=== PATIENT | male | born 1960 | race African-American/Black ===

== ENCOUNTER → 2020-08-16 | Outpatient (CLI) | payer MEDICARE ==
[~2020-08-16] MED LIST: BENA1TAB19; CEPH-569; DEXAMETHASONE 4MG/ML 1ML VIAL ONE; FENTANYL CITRATE/PF 50MCG/ML 2ML VIAL ONE; HYDR-4005; INSLIS SUBCUT; LEVEMIR FLEXPEN; METF-416; MIDAZOLAM HCL 2 MG/2 ML VIAL ONE; ONDANSETRON HCL 4MG/2ML INJ ONE; PROPOFOL 200MG/20ML VIAL IV ONE
== END | disposition home or self-care (01) ==
LOC: LAB 08:01
PROVIDERS: ATTEND Surgery Vascular Surgery
DX: Z20.822 Contact with and (suspected) exposure to COVID-19 (principal)
CPT/HCPCS: 87426

== ENCOUNTER → 2020-08-19 | Day surgery (SDC) | payer MEDICARE, OTHER ==
[~2020-08-19] VITALS: Ht 188 cm; Wt 142.9 kg
[~2020-08-19] MED LIST changes: +BACITRACIN 15GM TUBE TOP ONE; +BUPIVACAINE HCL 0.5% (5MG/ML) 50ML ONE; -DEXAMETHASONE 4MG/ML 1ML VIAL ONE; +DEXT 5%/0.45% NACL 1000ML 1,000 ML IV SCH; -FENTANYL CITRATE/PF 50MCG/ML 2ML VIAL ONE; +HEPARIN SODIUM 1,000 UNIT/1ML VIAL IV ONE; +HYDROMORPHONE HCL/PF 2MG/ML CPJ IV PRN; +INSULIN REGULAR (HUMULIN R) 300UNITS/3ML VIAL ONE; +INSULIN REGULAR (HUMULIN R) 300UNITS/3ML VIAL SUBCUT SCH; +LABETALOL 5MG/ML SYR 20 MG/4 ML SYRINGE IV PRN; +LIDOCAINE HCL 1% 20ML VIAL (Pyxis) INJ ONE; +MEPERIDINE HCL/PF 25MG/ML CPJ IV PRN; -MIDAZOLAM HCL 2 MG/2 ML VIAL ONE; +ONDANSETRON HCL 4MG/2ML INJ IV PRN; -ONDANSETRON HCL 4MG/2ML INJ ONE; +POLYMYXIN B SULFATE 500000 UNITS/VIAL ONE; -PROPOFOL 200MG/20ML VIAL IV ONE; +SODIUM CHLORIDE 0.9% 500 ML IV ONE; +THROMBIN (BOVINE) 5000 UNITS/VIAL TOP ONE
[2020-08-19 06:19] LABS: PARTIAL THROMBOPLASTIN TIME 24.5 sec (23.4-31.0); PROTHROMBIN TIME 10.4 sec (9.6-11.0)
[2020-08-19 06:21] LABS: BASOPHILS % 0.7 % (0.0-2.0); EOSINOPHILS % 1.9 % (0.0-5.0); HEMOGLOBIN. 11.1 g/dL (14.0-18.0); LYMPHOCYTES % 23.7 % (20.0-50.0); MEAN CORPUSCULAR HEMOGLOBIN 30.5 pg (28.0-32.0); MEAN CORPUSCULAR VOLUME 93.9 fL (80.0-94.0); MEAN PLATELET VOLUME 8.3 fl (7.4-10.4); MONOCYTES % 7.2 % (2.0-8.0); NEUTROPHILS % 66.5 % (40.0-76.0); PLATELET 243 x1000/uL (130-400); RED BLOOD CELL COUNT 3.62 mill/uL (4.7-6.1); RED CELL DISTRIBUTION WIDTH 13.8 % (11.6-14.6)
== END | disposition home or self-care (01) ==
LOC: OR 05:25
PROVIDERS: ATTEND Surgery Vascular Surgery
DX: N18.6 End stage renal disease (principal); Z99.2 Dependence on renal dialysis; Z79.899 Other long term (current) drug therapy; Z98.890 Other specified postprocedural states
CPT/HCPCS: 36415; 36821; 80048; 82962; 85025; 85610; 85730; 93005; C1884; J1100; J1644; J2250; J2405; J2704; J3010; J3490; J7040; A4565; J1815

== ENCOUNTER 2023-05-20 08:55 | Emergency (ER) | payer MEDICARE, OTHER ==
[~2023-05-20] VITALS: Ht 188 cm; Wt 144.0 kg
[~2023-05-20 08:55] MED LIST changes: -BACITRACIN 15GM TUBE TOP ONE; -BENA1TAB19; -BUPIVACAINE HCL 0.5% (5MG/ML) 50ML ONE; -CEPH-569; -DEXT 5%/0.45% NACL 1000ML 1,000 ML IV SCH; -HEPARIN SODIUM 1,000 UNIT/1ML VIAL IV ONE; -HYDR-4005; -HYDROMORPHONE HCL/PF 2MG/ML CPJ IV PRN; -INSULIN REGULAR (HUMULIN R) 300UNITS/3ML VIAL ONE; -INSULIN REGULAR (HUMULIN R) 300UNITS/3ML VIAL SUBCUT SCH; -LABETALOL 5MG/ML SYR 20 MG/4 ML SYRINGE IV PRN; -LEVEMIR FLEXPEN; -LIDOCAINE HCL 1% 20ML VIAL (Pyxis) INJ ONE; -MEPERIDINE HCL/PF 25MG/ML CPJ IV PRN; -METF-416; -ONDANSETRON HCL 4MG/2ML INJ IV PRN; -POLYMYXIN B SULFATE 500000 UNITS/VIAL ONE; -SODIUM CHLORIDE 0.9% 500 ML IV ONE; -THROMBIN (BOVINE) 5000 UNITS/VIAL TOP ONE
[2023-05-20 08:57] VITALS: O2SAT 95
[2023-05-20 09:45] LABS: BASOPHILS % 0.6 % (0.0-2.0); HEMATOCRIT. 40.8 % (42.0-52.0); HEMOGLOBIN. 13.4 g/dL (14.0-18.0); LYMPHOCYTES % 17.8 % (20.0-50.0); MEAN CORPUSCULAR HEMOGLOBIN 31.3 pg (28.0-32.0); MEAN CORPUSCULAR HGB CONC 32.9 g/dL (31.0-37.0); MEAN CORPUSCULAR VOLUME 95.1 fL (80.0-94.0); MONOCYTES % 7.6 % (2.0-8.0); PLATELET 278 x1000/uL (130-400); RED BLOOD CELL COUNT 4.29 mill/uL (4.7-6.1); RED CELL DISTRIBUTION WIDTH 14.5 % (11.6-14.6)
[2023-05-20 09:54] LABS: INR 0.9
[2023-05-20 10:05] LABS: ALANINE AMINOTRANSFERASE 14 IU/L (10-49); ALBUMIN 5.2 g/dL (3.2-4.8); ASPARTATE AMINOTRANSFERASE 19 IU/L (<34); BILIRUBIN TOTAL 0.3 mg/dL (0.1-1.0); CALCIUM 9.6 mg/dL (8.7-10.4); CARBON DIOXIDE 24 mEq/L (21-32); CHLORIDE 94 mEq/L (98-107); GLUCOSE 176 mg/dL (70-105); PROTEIN TOTAL 8.8 g/dL (6.0-8.3); SODIUM 131 mEq/L (136-145); UREA NITROGEN BLOOD 60 mg/dL (9-23)
[2023-05-20 10:12] LABS: CREATININE 8.1 mg/dL (0.6-1.3)
[2023-05-20 11:16] VITALS: BP 155/83; PULSE 88; RESP 15; TEMP 99.2
[2023-05-20 11:41] LABS: TROPONIN I HIGH SENSITIVITY 78 ng/L (3.0-53)
== END 2023-05-20 11:20 | disposition home or self-care (01) ==
LOC: ER 08:55 → CANBEDREQ 05-21 21:23
DX: T82.590A Other mechanical complication of surgically created arteriovenous fistula, initial encounter (principal); E11.9 Type 2 diabetes mellitus without complications; I10 Essential (primary) hypertension; I95.3 Hypotension of hemodialysis; Z20.822 Contact with and (suspected) exposure to COVID-19
CPT/HCPCS: 36415; 80053; 84484; 85025; 87426; 99283

== ENCOUNTER 2024-12-26 18:37 | Inpatient (IN) | payer MEDICARE, OTHER ==
[~2024-12-26] VITALS: Ht 177.8 cm; Wt 129.3 kg
[2024-12-26 20:16] LABS: BASOPHILS % 0.5 % (0.0-2.0); EOSINOPHILS % 0.1 % (0.0-5.0); HEMATOCRIT. 34.3 % (42.0-52.0); HEMOGLOBIN. 11.2 g/dL (14.0-18.0); LYMPHOCYTES % 10.8 % (20.0-50.0); MEAN PLATELET VOLUME 8.1 fl (7.4-10.4); MONOCYTES % 6.4 % (2.0-8.0); NEUTROPHILS % 82.2 % (40.0-76.0); PLATELET 341 x1000/uL (130-400); RED BLOOD CELL COUNT 3.55 mill/uL (4.7-6.1); RED CELL DISTRIBUTION WIDTH 15.2 % (11.6-14.6)
[2024-12-26 20:30] LABS: UREA NITROGEN BLOOD 67.0 mg/dL (9-23)
[2024-12-26 20:31] LABS: INR 1.0
[2024-12-26 20:38] LABS: CREATININE 10.5 mg/dL (0.6-1.3)
[2024-12-26] MEDS: FUROSEMIDE 100MG/10ML VIAL IV NR (21:38)
[2024-12-26] MEDS: DEXTROSE 50% WATER 50ML SYRINGE IV NR (21:39)
[2024-12-26] MEDS: CALCIUM GLUCONATE 100MG/ML 10ML VIAL IV NR (21:43)
[2024-12-26] MEDS: INSULIN REGULAR (HUMULIN R) 1000UNITS/10ML VIAL IV NR (21:45)
[2024-12-26 22:00] VITALS: PULSE 76; RESP 18; O2SAT 99
[2024-12-26] MEDS: ALBUTEROL (0.5%) 2.5MG/0.5ML NEB HHN NR (22:00)
[2024-12-26 22:23] VITALS: BP 117/61; PULSE 87; RESP 18; TEMP 36.7; O2SAT 96
[2024-12-26 23:00] VITALS: BP 117/61; PULSE 87; RESP 18; TEMP 36.696
[2024-12-27] VITALS (15 sets, daily range): BP systolic 112–144; BP diastolic 50–81; PULSE 72–84; RESP 14–18; TEMP 36.4–37.2; O2SAT 94–100
[2024-12-27] MEDS ORDERED: CLONIDINE 0.1MG TABLET PO PRN (00:15)
[2024-12-27] MEDS ORDERED: DEXTROSE 50% WATER 50ML SYRINGE IV PRN ×2 (00:15→00:45)
[2024-12-27] MEDS: SODIUM ZIRCONIUM CYCLOSILICATE 10GM/PACKET PO NR (00:41)
[2024-12-27] MEDS: HYDROCODONE/ACETAMINOPHEN 5/325MG TABLET PO PRN (00:41)
[2024-12-27] MEDS ORDERED: NALOXONE HCL 0.4MG/ML VIAL IV PRN (00:45)
[2024-12-27 06:14] LABS: BASOPHILS % 0.9 % (0.0-2.0); EOSINOPHILS % 0.6 % (0.0-5.0); HEMATOCRIT. 34.2 % (42.0-52.0); HEMOGLOBIN. 10.8 g/dL (14.0-18.0); LYMPHOCYTES % 20.5 % (20.0-50.0); MEAN PLATELET VOLUME 7.9 fl (7.4-10.4); MONOCYTES % 8.8 % (2.0-8.0); NEUTROPHILS % 69.2 % (40.0-76.0); PLATELET 322 x1000/uL (130-400); RED BLOOD CELL COUNT 3.52 mill/uL (4.7-6.1); RED CELL DISTRIBUTION WIDTH 15.1 % (11.6-14.6)
[2024-12-27 06:29] LABS: UREA NITROGEN BLOOD 72.0 mg/dL (9-23)
[2024-12-27 06:44] LABS: CREATININE 10.8 mg/dL (0.6-1.3)
[2024-12-27] MEDS: BLOOD SUGAR DIAGNOSTIC STRIP TEST SCH (06:45)
[2024-12-27] MEDS ORDERED: BLOOD SUGAR DIAGNOSTIC STRIP TEST SCH (06:45)
[2024-12-27] MEDS: INSULIN LISPRO 100 UNITS/ML SUBCUT SCH (07:15)
[2024-12-27] MEDS: GABAPENTIN 100MG CAPSULE PO SCH (12:10)
[2024-12-27] MEDS: MORPHINE SULFATE 4 MG/ML INJ (FOR IV/IM USE) IV PRN (12:16)
[2024-12-27 13:59] LABS: HIV 1/2 AB P24AG Negative (Negative)
[2024-12-27 15:25] LABS: HEPATITIS C VIR.AB < 0.02 INDEXVAL (0.00-0.80)
[2024-12-28] VITALS: BP 127/46; PULSE 82; RESP 18; TEMP 36.5; O2SAT 93
[2024-12-28 04:00] VITALS: BP 127/53; PULSE 77; RESP 17; TEMP 36.3; O2SAT 96
[2024-12-28 08:00] VITALS: BP 122/63; PULSE 89; RESP 18; TEMP 36.5; O2SAT 95
[2024-12-28] MEDS ORDERED: METHADONE HCL 10MG TABLET PO SCH (09:00)
[2024-12-28] MEDS: METHADONE HCL 5MG TABLET PO SCH (09:19)
[2024-12-28 10:54] LABS: PLATELET 306 x1000/uL (130-400); RED BLOOD CELL COUNT 3.55 mill/uL (4.7-6.1); RED CELL DISTRIBUTION WIDTH 14.7 % (11.6-14.6)
[2024-12-28 12:00] VITALS: BP 140/73; PULSE 84; RESP 18; TEMP 36.7; O2SAT 95
[2024-12-28 16:00] VITALS: BP 106/59; PULSE 76; RESP 15; TEMP 36.6; O2SAT 99
[2024-12-28 20:00] VITALS: BP 130/57; PULSE 79; RESP 17; TEMP 36.6; O2SAT 98
[2024-12-29] VITALS (14 sets, daily range): BP systolic 112–132; BP diastolic 58–83; PULSE 70–92; RESP 16–18; TEMP 35.8–37.00296; O2SAT 18–100
[2024-12-29] MEDS: TRAMADOL 50MG TABLET PO SCH (16:54)
[2024-12-30] VITALS: BP 133/69; PULSE 70; RESP 18; TEMP 36.4; O2SAT 98
[2024-12-30 04:00] VITALS: BP 99/48; PULSE 74; RESP 18; TEMP 36.5; O2SAT 98
[2024-12-30] MEDS ORDERED: ACETAMINOPHEN 650MG/20.3ML UDC PO PRN (07:00)
[2024-12-30] MEDS: ACETAMINOPHEN 325MG TABLET PO PRN (07:34)
[2024-12-30 08:00] VITALS: BP 122/68; PULSE 80; RESP 16; TEMP 36.4; O2SAT 95
[2024-12-30 12:00] VITALS: BP 127/68; PULSE 84; RESP 18; TEMP 36.3; O2SAT 96
[2024-12-30 16:00] VITALS: BP 121/65; PULSE 78; RESP 19; TEMP 36.6; O2SAT 99
[2024-12-30 20:20] VITALS: BP 117/65; PULSE 76; RESP 18; TEMP 36.6; O2SAT 97
[2024-12-31] VITALS: BP 106/68; PULSE 76; RESP 17; TEMP 36.5; O2SAT 97
[2024-12-31 04:00] VITALS: BP 117/61; PULSE 80; RESP 14; TEMP 36.4; O2SAT 96
[2024-12-31 08:00] VITALS: BP 126/82; PULSE 82; RESP 18; TEMP 36.4; O2SAT 95
[2024-12-31 12:00] VITALS: BP 129/74; PULSE 84; RESP 18; TEMP 36.6; O2SAT 96
[2024-12-31 16:00] VITALS: BP 115/69; PULSE 78; RESP 18; TEMP 36.6; O2SAT 95
[2024-12-31 17:20] LABS: BASOPHILS % 1.1 % (0.0-2.0); EOSINOPHILS % 2.5 % (0.0-5.0); HEMATOCRIT. 33.9 % (42.0-52.0); HEMOGLOBIN. 10.9 g/dL (14.0-18.0); LYMPHOCYTES % 17.5 % (20.0-50.0); MEAN PLATELET VOLUME 8.3 fl (7.4-10.4); MONOCYTES % 8.3 % (2.0-8.0); NEUTROPHILS % 70.6 % (40.0-76.0); PLATELET 269 x1000/uL (130-400); RED BLOOD CELL COUNT 3.45 mill/uL (4.7-6.1); RED CELL DISTRIBUTION WIDTH 14.6 % (11.6-14.6)
[2024-12-31] MEDS: DOCUSATE SODIUM 100MG CAPSULE PO SCH (17:28)
[2024-12-31 17:43] LABS: UREA NITROGEN BLOOD 66.0 mg/dL (9-23)
[2024-12-31 18:07] LABS: CREATININE 13.7 mg/dL (0.6-1.3)
[2024-12-31 20:00] VITALS: BP 118/70; PULSE 72; RESP 18; TEMP 36.4; O2SAT 96
[2024-12-31] MEDS ORDERED: VANCOMYCIN 2GM PMX (XELLIA) 400 ML IV SCH (21:00)
[2025-01-01] VITALS (71 sets, daily range): BP systolic 85–172; BP diastolic 50–133; PULSE 62–97; RESP 0–23; TEMP 34.7–37.2; O2SAT 90–100
[2025-01-01] MEDS: NOREPINEPHRINE 8MG/250ML PMX 250 ML IV PRN (05:49)
[2025-01-01] MEDS: PROPOFOL 10MG/ML 100ML 100 ML IV PRN (05:49)
[2025-01-01 06:26] LABS: BG BASE EXCESS -13.8 mmol/L (-2.0-3.0); BG CARBOXYHEMOGLOBIN 1.0 % (0.5-1.5); BG DEOXYHEMOGLOBIN 4.4 % (0.0-5.0); BG FRACTION INSPIRED OXYGEN 90; BG HCO3 ACT 15.3 mmol/L (21.0-28.0); BG METHEMOGLOBIN 0.3 % (0.5-1.5); BG OXYGEN SATURATION 95.5 % (94.0-98.0); BG OXYHEMOGLOBIN 94.3 % (94.0-98.0); BG PCO2 48.4 mmHg (35.0-48.0); BG PEEP (cmH2O) 5.0 cmH2O; BG PH 7.117 (7.350-7.450); BG PO2 102.7 mmHg (83.0-108.0); BG SAMPLE SITE ALINE; BG TIDAL VOLUME(mL) 500.0 mL; BG TOTAL HEMOGLOBIN 12.0 g/dL (13.5-17.5); BG VENT MODE VENT - AC; BG VENT RATE 22.0 set
[2025-01-01 06:57] LABS: BASOPHILS % 0.2 % (0.0-2.0); EOSINOPHILS % 0.5 % (0.0-5.0); HEMATOCRIT. 33.5 % (42.0-52.0); HEMOGLOBIN. 10.9 g/dL (14.0-18.0); LYMPHOCYTES % 8.2 % (20.0-50.0); MEAN PLATELET VOLUME 8.5 fl (7.4-10.4); MONOCYTES % 2.4 % (2.0-8.0); NEUTROPHILS % 88.7 % (40.0-76.0); PLATELET 336 x1000/uL (130-400); RED BLOOD CELL COUNT 3.46 mill/uL (4.7-6.1); RED CELL DISTRIBUTION WIDTH 14.3 % (11.6-14.6)
[2025-01-01 07:11] LABS: UREA NITROGEN BLOOD 96 mg/dL (9-23)
[2025-01-01 07:13] LABS: ASPARTATE AMINOTRANSFERASE 662 IU/L (<34); BILIRUBIN TOTAL 0.2 mg/dL (0.1-1.0)
[2025-01-01 07:14] LABS: PROTEIN TOTAL 6.7 g/dL (6.0-8.3)
[2025-01-01 07:26] LABS: CREATININE 14.6 mg/dL (0.6-1.3)
[2025-01-01 07:28] LABS: PHOSPHORUS 12.3 mg/dL (2.5-4.9); TROPONIN I HIGH SENSITIVITY 214 ng/L (3.0-53)
[2025-01-01] MEDS: EPINEPHRINE 5 MG in SODIUM CHLORIDE 0.9% 245 ML IV PRN (07:50)
[2025-01-01] MEDS ORDERED: LIDOCAINE HCL 1% 10 MG/ML 10ML VIAL ONE (08:46)
[2025-01-01] MEDS ORDERED: PIPERACILLIN/TAZO 3.375G/50ML 50 ML IV SCH (09:30)
[2025-01-01] MEDS ORDERED: DEXTROSE 50% WATER 50ML SYRINGE IV PRN (09:45)
[2025-01-01] MEDS: BLOOD SUGAR DIAGNOSTIC STRIP TEST SCH (10:00)
[2025-01-01 10:09] LABS: BG BASE EXCESS -10.3 mmol/L (-2.0-3.0); BG CARBOXYHEMOGLOBIN 0.6 % (0.5-1.5); BG DEOXYHEMOGLOBIN 3.8 % (0.0-5.0); BG FRACTION INSPIRED OXYGEN 90; BG HCO3 ACT 17.9 mmol/L (21.0-28.0); BG METHEMOGLOBIN 0.3 % (0.5-1.5); BG OXYGEN SATURATION 96.2 % (94.0-98.0); BG OXYHEMOGLOBIN 95.3 % (94.0-98.0); BG PCO2 49.3 mmHg (35.0-48.0); BG PEEP (cmH2O) 5.0 cmH2O; BG PH 7.179 (7.350-7.450); BG PO2 102.9 mmHg (83.0-108.0); BG SAMPLE SITE ALINE; BG TIDAL VOLUME(mL) 500.0 mL; BG TOTAL HEMOGLOBIN 12.3 g/dL (13.5-17.5); BG VENT MODE VENT - AC; BG VENT RATE 22.0 set
[2025-01-01] MEDS: SODIUM BICARBONATE 8.4% 50MEQ/50ML SYR IV NR (10:40)
[2025-01-01] MEDS: DEXTROSE 50% WATER 50ML SYRINGE IV NR (10:40)
[2025-01-01] MEDS: ENOXAPARIN 40MG/0.4ML SYR SUBCUT SCH (10:41)
[2025-01-01] MEDS: PANTOPRAZOLE SODIUM 40 MG/VIAL IV SCH (10:42)
[2025-01-01] MEDS: PIPERACILLIN/TAZO 3.375G/50ML 50 ML IV SCH (10:42)
[2025-01-01] MEDS: INSULIN REGULAR (HUMULIN R) 1000UNITS/10ML VIAL IV NR (10:43)
[2025-01-01] MEDS: CALCIUM GLUCONATE 1GM PREMIX 50 ML IV NR (11:34)
[2025-01-01] MEDS: INSULIN LISPRO 100 UNITS/ML SUBCUT SCH (11:36)
[2025-01-01] MEDS: VANCOMYCIN 2GM PMX (XELLIA) 400 ML IV ONE (11:36)
[2025-01-01] MEDS ORDERED: DEXTROSE 50% WATER 50ML SYRINGE IV ONE (12:44)
[2025-01-01] MEDS ORDERED: SODIUM BICARBONATE 8.4% 50MEQ/50ML SYR IV ONE (12:44)
[2025-01-01] MEDS ORDERED: ATROPINE SULFATE 1MG/10ML SYR ONE (12:44)
[2025-01-01] MEDS ORDERED: EPINEPHRINE 0.1MG/ML (1:10,000) 10ML SYR ONE (12:44)
[2025-01-01 15:45] LABS: UREA NITROGEN BLOOD 60 mg/dL (9-23)
[2025-01-01 15:46] LABS: ASPARTATE AMINOTRANSFERASE 618 IU/L (<34)
[2025-01-01 15:47] LABS: BILIRUBIN TOTAL 0.2 mg/dL (0.1-1.0); PROTEIN TOTAL 7.0 g/dL (6.0-8.3)
[2025-01-01 16:08] LABS: CREATININE 11.6 mg/dL (0.6-1.3)
[2025-01-01] MEDS: SODIUM ZIRCONIUM CYCLOSILICATE 10GM/PACKET PO SCH (20:13)
[2025-01-01] MEDS ORDERED: IOHEXOL-350 100 ML BOTTLE ONE (22:49)
[2025-01-01 23:46] LABS: BG BASE EXCESS -3.8 mmol/L (-2.0-3.0); BG CARBOXYHEMOGLOBIN 0.4 % (0.5-1.5); BG DEOXYHEMOGLOBIN 1.4 % (0.0-5.0); BG FRACTION INSPIRED OXYGEN 70; BG HCO3 ACT 21.2 mmol/L (21.0-28.0); BG METHEMOGLOBIN 0.3 % (0.5-1.5); BG OXYGEN SATURATION 98.6 % (94.0-98.0); BG OXYHEMOGLOBIN 97.9 % (94.0-98.0); BG PCO2 38.5 mmHg (35.0-48.0); BG PEEP (cmH2O) 5.0 cmH2O; BG PH 7.359 (7.350-7.450); BG PO2 130.3 mmHg (83.0-108.0); BG SAMPLE SITE ALINE; BG TIDAL VOLUME(mL) 500.0 mL; BG TOTAL HEMOGLOBIN 11.2 g/dL (13.5-17.5); BG VENT MODE VENT - AC; BG VENT RATE 22.0 set
[2025-01-02] VITALS (110 sets, daily range): BP systolic 103–189; BP diastolic 55–151; PULSE 76–113; RESP 0–25; TEMP 35.5584–38.1; O2SAT 85–100
[2025-01-02] MEDS ORDERED: PROPOFOL 10MG/ML 100ML 100 ML IV PRN (06:45)
[2025-01-02 09:02] LABS: UREA NITROGEN BLOOD 79.0 mg/dL (9-23)
[2025-01-02 09:04] LABS: CREATININE 12.3 mg/dL (0.6-1.3)
[2025-01-02 09:06] LABS: BASOPHILS % 0.7 % (0.0-2.0); EOSINOPHILS % 0.2 % (0.0-5.0); HEMATOCRIT. 31.7 % (42.0-52.0); HEMOGLOBIN. 10.5 g/dL (14.0-18.0); LYMPHOCYTES % 11.8 % (20.0-50.0); MEAN PLATELET VOLUME 8.9 fl (7.4-10.4); MONOCYTES % 9.1 % (2.0-8.0); NEUTROPHILS % 78.2 % (40.0-76.0); PLATELET 277 x1000/uL (130-400); RED BLOOD CELL COUNT 3.32 mill/uL (4.7-6.1); RED CELL DISTRIBUTION WIDTH 14.4 % (11.6-14.6)
[2025-01-02] MEDS: SODIUM POLYSTYRENE SULFONATE 15 G/60 ML BOT PO SCH (09:38)
[2025-01-02] MEDS: METHYLPREDNISOLONE SOD SUCC 40MG/ML (ACT-O-VIAL) IV SCH (14:33)
[2025-01-02 18:46] LABS: UREA NITROGEN BLOOD 54 mg/dL (9-23)
[2025-01-02 18:52] LABS: CREATININE 9.6 mg/dL (0.6-1.3); PHOSPHORUS 8.1 mg/dL (2.5-4.9)
[2025-01-02] MEDS ORDERED: VANCOMYCIN 500MG PREMIX 100 ML IV SCH (21:00)
[2025-01-02 21:52] LABS: HEMATOCRIT. 31.1 % (42.0-52.0); HEMOGLOBIN. 10.2 g/dL (14.0-18.0); MEAN PLATELET VOLUME 8.6 fl (7.4-10.4); PLATELET 248 x1000/uL (130-400); RED BLOOD CELL COUNT 3.28 mill/uL (4.7-6.1); RED CELL DISTRIBUTION WIDTH 14.4 % (11.6-14.6)
[2025-01-02 22:20] LABS: LYMPHOCYTES % MANUAL 10.0 % (20.0-50.0); MONOCYTES % MANUAL 4.0 % (2.0-8.0); NEUTROPHILS % MANUAL 86.0 % (45.0-75.0)
[2025-01-02 22:21] LABS: PLATELET ESTIMATE NORMAL
[2025-01-03] VITALS (69 sets, daily range): BP systolic 72–178; BP diastolic 49–131; PULSE 77–107; RESP 10–23; TEMP 36.00288–38; O2SAT 93–100
[2025-01-03 06:37] LABS: BASOPHILS % 0.9 % (0.0-2.0); EOSINOPHILS % 0.1 % (0.0-5.0); HEMATOCRIT. 29.6 % (42.0-52.0); HEMOGLOBIN. 9.8 g/dL (14.0-18.0); LYMPHOCYTES % 10.7 % (20.0-50.0); MEAN PLATELET VOLUME 8.2 fl (7.4-10.4); MONOCYTES % 9.3 % (2.0-8.0); NEUTROPHILS % 79.0 % (40.0-76.0); PLATELET 249 x1000/uL (130-400); RED BLOOD CELL COUNT 3.13 mill/uL (4.7-6.1); RED CELL DISTRIBUTION WIDTH 14.3 % (11.6-14.6)
[2025-01-03 06:56] LABS: UREA NITROGEN BLOOD 60.0 mg/dL (9-23)
[2025-01-03 06:59] LABS: CREATININE 10.5 mg/dL (0.6-1.3)
[2025-01-03 08:47] LABS: BG BASE EXCESS -2.2 mmol/L (-2.0-3.0); BG CARBOXYHEMOGLOBIN 0.8 % (0.5-1.5); BG DEOXYHEMOGLOBIN 2.3 % (0.0-5.0); BG FRACTION INSPIRED OXYGEN 30; BG HCO3 ACT 22.7 mmol/L (21.0-28.0); BG METHEMOGLOBIN 0.3 % (0.5-1.5); BG OXYGEN SATURATION 97.7 % (94.0-98.0); BG OXYHEMOGLOBIN 96.6 % (94.0-98.0); BG PCO2 39.3 mmHg (35.0-48.0); BG PEEP (cmH2O) 5.0 cmH2O; BG PH 7.380 (7.350-7.450); BG PO2 101.4 mmHg (83.0-108.0); BG SAMPLE SITE ALINE; BG TOTAL HEMOGLOBIN 10.5 g/dL (13.5-17.5); BG VENT MODE VENT - CPAP
[2025-01-03] MEDS: CALCIUM ACETATE 667MG CAPSULE PO SCH (14:12)
[2025-01-03 15:29] LABS: BG BASE EXCESS -1.9 mmol/L (-2.0-3.0); BG CARBOXYHEMOGLOBIN 0.9 % (0.5-1.5); BG DEOXYHEMOGLOBIN 1.2 % (0.0-5.0); BG FLOW(L/min) 8.00 L/min; BG FRACTION INSPIRED OXYGEN 35; BG HCO3 ACT 23.0 mmol/L (21.0-28.0); BG METHEMOGLOBIN 0.3 % (0.5-1.5); BG OXYGEN SATURATION 98.8 % (94.0-98.0); BG OXYHEMOGLOBIN 97.6 % (94.0-98.0); BG PCO2 39.5 mmHg (35.0-48.0); BG PH 7.383 (7.350-7.450); BG PO2 128.2 mmHg (83.0-108.0); BG SAMPLE SITE ALINE; BG TOTAL HEMOGLOBIN 10.6 g/dL (13.5-17.5); BG VENT MODE COOL AEROSOL
[2025-01-03] MEDS: VANCOMYCIN 1GM/200ML PMX (BAXTER) IV SCH (17:50)
[2025-01-03] MEDS: LORAZEPAM 2MG/ML UD SYRINGE IV SCH (21:49)
[2025-01-04] VITALS (92 sets, daily range): BP systolic 80–156; BP diastolic 28–132; PULSE 78–96; RESP 9–26; TEMP 36.61404–37.6; O2SAT 92–100
[2025-01-04 06:40] LABS: PLATELET 264 x1000/uL (130-400); RED BLOOD CELL COUNT 3.08 mill/uL (4.7-6.1); RED CELL DISTRIBUTION WIDTH 14.5 % (11.6-14.6)
[2025-01-04 06:51] LABS: UREA NITROGEN BLOOD 41 mg/dL (9-23)
[2025-01-04 06:53] LABS: CREATININE 8.6 mg/dL (0.6-1.3); PHOSPHORUS 7.2 mg/dL (2.5-4.9)
[2025-01-04 10:35] LABS: UREA NITROGEN BLOOD 43.0 mg/dL (9-23)
[2025-01-04 10:54] LABS: CREATININE 9.0 mg/dL (0.6-1.3)
[2025-01-04 10:58] LABS: BASOPHILS % 0.8 % (0.0-2.0); EOSINOPHILS % 1.6 % (0.0-5.0); HEMATOCRIT. 28.3 % (42.0-52.0); HEMOGLOBIN. 9.2 g/dL (14.0-18.0); LYMPHOCYTES % 13.1 % (20.0-50.0); MEAN PLATELET VOLUME 8.5 fl (7.4-10.4); MONOCYTES % 10.2 % (2.0-8.0); NEUTROPHILS % 74.3 % (40.0-76.0); PLATELET 256 x1000/uL (130-400); RED BLOOD CELL COUNT 2.97 mill/uL (4.7-6.1); RED CELL DISTRIBUTION WIDTH 14.5 % (11.6-14.6)
[2025-01-04 15:13] LABS: BG BASE EXCESS -0.1 mmol/L (-2.0-3.0); BG CARBOXYHEMOGLOBIN 1.1 % (0.5-1.5); BG DEOXYHEMOGLOBIN 1.6 % (0.0-5.0); BG FRACTION INSPIRED OXYGEN 32; BG HCO3 ACT 25.3 mmol/L (21.0-28.0); BG METHEMOGLOBIN 0.3 % (0.5-1.5); BG OXYGEN SATURATION 98.4 % (94.0-98.0); BG OXYHEMOGLOBIN 97.0 % (94.0-98.0); BG PCO2 44.2 mmHg (35.0-48.0); BG PH 7.375 (7.350-7.450); BG PO2 119.4 mmHg (83.0-108.0); BG SAMPLE SITE ALINE; BG TOTAL HEMOGLOBIN 10.1 g/dL (13.5-17.5); BG VENT MODE NASAL CANNULA
[2025-01-04] MEDS: ARIPIPRAZOLE 5MG TABLET PO SCH (16:20)
[2025-01-04 18:51] LABS: BG BASE EXCESS -0.1 mmol/L (-2.0-3.0); BG CARBOXYHEMOGLOBIN 0.8 % (0.5-1.5); BG DEOXYHEMOGLOBIN 1.9 % (0.0-5.0); BG FRACTION INSPIRED OXYGEN 32; BG HCO3 ACT 25.4 mmol/L (21.0-28.0); BG METHEMOGLOBIN 0.3 % (0.5-1.5); BG OXYGEN SATURATION 98.1 % (94.0-98.0); BG OXYHEMOGLOBIN 97.0 % (94.0-98.0); BG PCO2 44.6 mmHg (35.0-48.0); BG PH 7.373 (7.350-7.450); BG PO2 105.6 mmHg (83.0-108.0); BG SAMPLE SITE ALINE; BG TOTAL HEMOGLOBIN 11.3 g/dL (13.5-17.5); BG VENT MODE NASAL CANNULA
[2025-01-04 19:35] LABS: HEPATITIS A AB IGM NEGATIVE (Negative)
[2025-01-04 19:36] LABS: HEPATITIS B CORE AB IGM NEGATIVE (Negative)
[2025-01-04 19:37] LABS: HEPATITIS C AB NON REACTIVE (Neg) (Negative)
[2025-01-05] VITALS (96 sets, daily range): BP systolic 97–174; BP diastolic 41–124; PULSE 74–91; RESP 0–22; TEMP 36.6696–38.6; O2SAT 94–100
[2025-01-05 06:28] LABS: BASOPHILS % 1.0 % (0.0-2.0); EOSINOPHILS % 2.3 % (0.0-5.0); HEMATOCRIT. 29.0 % (42.0-52.0); HEMOGLOBIN. 9.5 g/dL (14.0-18.0); LYMPHOCYTES % 17.9 % (20.0-50.0); MEAN PLATELET VOLUME 8.1 fl (7.4-10.4); MONOCYTES % 10.2 % (2.0-8.0); NEUTROPHILS % 68.6 % (40.0-76.0); PLATELET 278 x1000/uL (130-400); RED BLOOD CELL COUNT 3.01 mill/uL (4.7-6.1); RED CELL DISTRIBUTION WIDTH 14.0 % (11.6-14.6)
[2025-01-05 06:43] LABS: UREA NITROGEN BLOOD 35.0 mg/dL (9-23)
[2025-01-05 07:43] LABS: CREATININE 8.7 mg/dL (0.6-1.3)
[2025-01-06] VITALS (98 sets, daily range): BP systolic 74–150; BP diastolic 34–94; PULSE 72–95; RESP 0–25; TEMP 36.7–37.4; O2SAT 76–100
[2025-01-06 05:45] LABS: BASOPHILS % 1.0 % (0.0-2.0); EOSINOPHILS % 2.6 % (0.0-5.0); HEMATOCRIT. 29.4 % (42.0-52.0); HEMOGLOBIN. 9.5 g/dL (14.0-18.0); LYMPHOCYTES % 14.3 % (20.0-50.0); MEAN PLATELET VOLUME 8.2 fl (7.4-10.4); MONOCYTES % 11.3 % (2.0-8.0); NEUTROPHILS % 70.8 % (40.0-76.0); PLATELET 299 x1000/uL (130-400); RED BLOOD CELL COUNT 3.05 mill/uL (4.7-6.1); RED CELL DISTRIBUTION WIDTH 14.0 % (11.6-14.6)
[2025-01-06 06:13] LABS: UREA NITROGEN BLOOD 28.0 mg/dL (9-23)
[2025-01-06 06:55] LABS: CREATININE 7.8 mg/dL (0.6-1.3)
[2025-01-06] MEDS ORDERED: MIDODRINE HCL 5MG TABLET PO SCH ×2 (11:30→14:00)
[2025-01-06] MEDS: MIDODRINE HCL 5MG TABLET PO NR (12:04)
[2025-01-06] MEDS: MIDODRINE HCL 5MG TABLET PO SCH (13:44)
[2025-01-06] MEDS ORDERED: AMPICILLIN 1,000 MG in SODIUM CHLORIDE 0.9% 50 ML IV SCH (18:15)
[2025-01-06] MEDS: AMPICILLIN 1000MG in SODIUM CHLORIDE 0.9% 50ML IV SCH (20:32)
[2025-01-06] MEDS: GENTAMICIN SULFATE IV SCH (20:32)
[2025-01-06] MEDS: SODIUM CHLORIDE 0.9% IV SCH (20:32)
[2025-01-07] VITALS (59 sets, daily range): BP systolic 66–152; BP diastolic 32–104; PULSE 71–89; RESP 0–26; TEMP 36.4–36.9; O2SAT 95–100
[2025-01-07 07:06] LABS: BASOPHILS % 0.9 % (0.0-2.0); EOSINOPHILS % 3.9 % (0.0-5.0); HEMATOCRIT. 29.3 % (42.0-52.0); HEMOGLOBIN. 9.7 g/dL (14.0-18.0); LYMPHOCYTES % 17.6 % (20.0-50.0); MEAN PLATELET VOLUME 8.0 fl (7.4-10.4); MONOCYTES % 8.9 % (2.0-8.0); NEUTROPHILS % 68.7 % (40.0-76.0); PLATELET 307 x1000/uL (130-400); RED BLOOD CELL COUNT 3.05 mill/uL (4.7-6.1); RED CELL DISTRIBUTION WIDTH 14.3 % (11.6-14.6)
[2025-01-07 07:19] LABS: UREA NITROGEN BLOOD 31.0 mg/dL (9-23)
[2025-01-07 07:57] LABS: CREATININE 9.2 mg/dL (0.6-1.3)
[2025-01-08] VITALS (11 sets, daily range): BP systolic 110–163; BP diastolic 53–87; PULSE 74–99; RESP 17–20; TEMP 36.1–36.7; O2SAT 95–100
[2025-01-08] MEDS: QUETIAPINE FUMARATE 25MG TABLET PO SCH (16:39)
[2025-01-09] VITALS: BP 115/60; PULSE 94; RESP 20; TEMP 36.2; O2SAT 96
[2025-01-09 04:00] VITALS: BP 107/77; PULSE 96; RESP 20; TEMP 36; O2SAT 98
[2025-01-09 08:00] VITALS: BP 148/85; PULSE 92; RESP 20; TEMP 36.7; O2SAT 95
[2025-01-09] MEDS ORDERED: ARIPIPRAZOLE 5MG TABLET PO SCH (09:00)
[2025-01-09] MEDS: LORAZEPAM 2MG/ML UD SYRINGE IV NR (14:45)
[2025-01-09 16:00] VITALS: BP 117/66; PULSE 89; RESP 20; TEMP 36.7; O2SAT 93
[2025-01-09 20:00] VITALS: BP 146/63; PULSE 91; RESP 19; TEMP 36; O2SAT 97
[2025-01-09] MEDS: QUETIAPINE FUMARATE 50MG TABLET PO SCH (20:23)
[2025-01-09] MEDS: LORAZEPAM 2MG/ML UD SYRINGE IV PRN (20:24)
[2025-01-10] VITALS (10 sets, daily range): BP systolic 105–139; BP diastolic 50–77; PULSE 74–92; RESP 18–22; TEMP 36.1–36.6696; O2SAT 97–100
[2025-01-10 17:43] LABS: BASOPHILS % 1.0 % (0.0-2.0); EOSINOPHILS % 3.1 % (0.0-5.0); HEMATOCRIT. 31.3 % (42.0-52.0); HEMOGLOBIN. 10.2 g/dL (14.0-18.0); LYMPHOCYTES % 18.5 % (20.0-50.0); MEAN PLATELET VOLUME 8.3 fl (7.4-10.4); MONOCYTES % 7.5 % (2.0-8.0); NEUTROPHILS % 69.9 % (40.0-76.0); PLATELET 422 x1000/uL (130-400); RED BLOOD CELL COUNT 3.27 mill/uL (4.7-6.1); RED CELL DISTRIBUTION WIDTH 14.6 % (11.6-14.6)
[2025-01-10 17:57] LABS: UREA NITROGEN BLOOD 31.0 mg/dL (9-23)
[2025-01-10 17:58] LABS: CREATININE 11.3 mg/dL (0.6-1.3)
[2025-01-11] VITALS (8 sets, daily range): BP systolic 102–134; BP diastolic 48–67; PULSE 73–87; RESP 17–21; TEMP 35.9–36.8; O2SAT 92–98
[2025-01-12] VITALS (11 sets, daily range): BP systolic 100–127; BP diastolic 54–74; PULSE 70–87; RESP 17–19; TEMP 36.3–37.2; O2SAT 95–100
[2025-01-12] MEDS ORDERED: ENOXAPARIN 100MG/ML SYR SUBCUT NR (11:30)
[2025-01-12] MEDS: ENOXAPARIN 100MG/ML SYR SUBCUT NR (11:50)
[2025-01-13 08:00] VITALS: BP 139/77; PULSE 81; RESP 20; TEMP 36.6; O2SAT 100
[2025-01-13] MEDS: ENOXAPARIN 150MG/ML SYR SUBCUT SCH (09:21)
[2025-01-13 12:00] VITALS: BP 128/65; PULSE 84; RESP 20; TEMP 36.4; O2SAT 100
[2025-01-13 16:00] VITALS: BP 104/65; PULSE 85; RESP 20; TEMP 36.4; O2SAT 100
[2025-01-13 17:02] LABS: BASOPHILS % 1.0 % (0.0-2.0); EOSINOPHILS % 2.3 % (0.0-5.0); HEMATOCRIT. 30.6 % (42.0-52.0); HEMOGLOBIN. 10.1 g/dL (14.0-18.0); LYMPHOCYTES % 20.4 % (20.0-50.0); MEAN PLATELET VOLUME 7.9 fl (7.4-10.4); MONOCYTES % 8.4 % (2.0-8.0); NEUTROPHILS % 67.9 % (40.0-76.0); PLATELET 501 x1000/uL (130-400); RED BLOOD CELL COUNT 3.22 mill/uL (4.7-6.1); RED CELL DISTRIBUTION WIDTH 14.2 % (11.6-14.6)
[2025-01-13 17:09] LABS: CREATININE 13.8 mg/dL (0.6-1.3); UREA NITROGEN BLOOD 38.0 mg/dL (9-23)
[2025-01-13 20:00] VITALS: BP_SYST 126; BP_SYST 147; BP_DIAS 68; BP_DIAS 70; PULSE 84; PULSE 88; RESP 19; TEMP 36.3; O2SAT 95; O2SAT 99
[2025-01-14] VITALS: BP 131/73; PULSE 84; RESP 18; TEMP 36.6; O2SAT 95
[2025-01-14 04:00] VITALS: BP 126/68; PULSE 84; RESP 19; TEMP 36.3; O2SAT 99
[2025-01-14 08:00] VITALS: BP 115/61; PULSE 68; RESP 17; TEMP 36.5; O2SAT 97
[2025-01-14 12:00] VITALS: BP 109/60; PULSE 77; RESP 19; TEMP 36.3; O2SAT 98
[2025-01-14 16:00] VITALS: BP 104/51; PULSE 73; RESP 19; TEMP 36.4; O2SAT 100
[2025-01-14] MEDS: THROAT LOZENGES-BENZOCAINE/MENTH/CETYLPYRD CL LOZENGES MM SCH (19:34)
[2025-01-14 20:00] VITALS: BP 100/50; PULSE 74; RESP 18; TEMP 35.9; O2SAT 97
[2025-01-15] VITALS (9 sets, daily range): BP systolic 100–118; BP diastolic 50–68; PULSE 19–91; RESP 17–19; TEMP 35.9–37; O2SAT 95–100
[2025-01-15] MEDS: TRAZODONE HCL 50MG TABLET PO PRN (00:06)
[2025-01-15 06:13] LABS: BASOPHILS % 0.9 % (0.0-2.0); EOSINOPHILS % 3.7 % (0.0-5.0); HEMATOCRIT. 29.2 % (42.0-52.0); HEMOGLOBIN. 9.7 g/dL (14.0-18.0); LYMPHOCYTES % 24.4 % (20.0-50.0); MEAN PLATELET VOLUME 7.7 fl (7.4-10.4); MONOCYTES % 9.4 % (2.0-8.0); NEUTROPHILS % 61.6 % (40.0-76.0); PLATELET 472 x1000/uL (130-400); RED BLOOD CELL COUNT 3.10 mill/uL (4.7-6.1); RED CELL DISTRIBUTION WIDTH 14.5 % (11.6-14.6)
[2025-01-15 06:34] LABS: UREA NITROGEN BLOOD 46 mg/dL (9-23)
[2025-01-15 06:36] LABS: ASPARTATE AMINOTRANSFERASE 15 IU/L (<34); BILIRUBIN TOTAL < 0.2 mg/dL (0.1-1.0); PROTEIN TOTAL 6.1 g/dL (6.0-8.3)
[2025-01-15 06:39] LABS: CREATININE 15.7 mg/dL (0.6-1.3)
[2025-01-15] MEDS: QUETIAPINE FUMARATE 50MG TABLET PO SCH (09:14)
[2025-01-15] MEDS ORDERED: NALOXONE HCL 0.4MG/ML VIAL IV PRN (15:30)
[2025-01-15] MEDS: HYDROCODONE/ACETAMINOPHEN 5/325MG TABLET PO PRN (15:53)
[2025-01-15] MEDS: HYDROCODONE/ACETAMINOPHEN 10/325MG TABLET PO PRN (16:09)
[2025-01-16] VITALS: BP 99/57; PULSE 83; RESP 19; TEMP 36.4; O2SAT 93
[2025-01-16 04:00] VITALS: BP 123/62; PULSE 82; RESP 19; TEMP 36.4; O2SAT 97
[2025-01-16 08:00] VITALS: BP 135/73; PULSE 82; RESP 19; TEMP 36.3; O2SAT 97
[2025-01-16] MEDS: ENOXAPARIN 150MG/ML SYR SUBCUT SCH (10:02)
[2025-01-16 12:00] VITALS: BP 114/63; PULSE 80; RESP 19; TEMP 36.3; O2SAT 98
[2025-01-16 16:00] VITALS: BP 107/56; PULSE 80; RESP 18; TEMP 36.2; O2SAT 98
[2025-01-16 19:01] LABS: TROPONIN I HIGH SENSITIVITY 251 ng/L (3.0-53)
[2025-01-16 20:10] VITALS: BP 126/68; PULSE 71; RESP 19; TEMP 36.4; O2SAT 98
[2025-01-17] VITALS (13 sets, daily range): BP systolic 107–149; BP diastolic 53–76; PULSE 70–84; RESP 14–21; TEMP 35.8–36.8; O2SAT 97–99
[2025-01-17] MEDS ORDERED: GUAIFENESIN 200MG/10ML SUGAR FREE UDC PO PRN (18:45)
[2025-01-17] MEDS: MELATONIN 3MG TABLET PO SCH (20:52)
[2025-01-18] VITALS: BP 126/77; PULSE 77; RESP 20; TEMP 36.3; O2SAT 98
[2025-01-18 02:11] LABS: TROPONIN I HIGH SENSITIVITY 288 ng/L (3.0-53)
[2025-01-18 04:00] VITALS: BP 123/68; PULSE 88; RESP 18; TEMP 36.3; O2SAT 98
[2025-01-18] MEDS: METOPROLOL TARTRATE 25MG TABLET PO SCH (05:20)
[2025-01-18 08:00] VITALS: BP 112/69; PULSE 64; RESP 20; TEMP 36.3; O2SAT 92
[2025-01-18 08:44] LABS: UREA NITROGEN BLOOD 40 mg/dL (9-23)
[2025-01-18 08:44] LABS: BASOPHILS % 1.6 % (0.0-2.0); EOSINOPHILS % 3.2 % (0.0-5.0); HEMATOCRIT. 29.3 % (42.0-52.0); HEMOGLOBIN. 9.6 g/dL (14.0-18.0); LYMPHOCYTES % 30.1 % (20.0-50.0); MEAN PLATELET VOLUME 7.7 fl (7.4-10.4); MONOCYTES % 10.8 % (2.0-8.0); NEUTROPHILS % 54.3 % (40.0-76.0); PLATELET 470 x1000/uL (130-400); RED BLOOD CELL COUNT 3.05 mill/uL (4.7-6.1); RED CELL DISTRIBUTION WIDTH 14.6 % (11.6-14.6)
[2025-01-18 08:45] LABS: ASPARTATE AMINOTRANSFERASE 21 IU/L (<34)
[2025-01-18 08:46] LABS: BILIRUBIN TOTAL 0.2 mg/dL (0.1-1.0); PROTEIN TOTAL 6.2 g/dL (6.0-8.3)
[2025-01-18] MEDS: SODIUM ZIRCONIUM CYCLOSILICATE 10GM/PACKET PO SCH (08:49)
[2025-01-18 09:24] LABS: CREATININE 12.6 mg/dL (0.6-1.3)
[2025-01-18 11:54] VITALS: BP 122/69; PULSE 61; RESP 20; TEMP 36.2
[2025-01-18 15:58] VITALS: BP 141/89; PULSE 67; RESP 20; TEMP 36.2; O2SAT 85
[2025-01-18 20:00] VITALS: BP 113/63; PULSE 71; RESP 20; TEMP 36.3; O2SAT 96
[2025-01-19] VITALS (10 sets, daily range): BP systolic 114–135; BP diastolic 50–79; PULSE 65–84; RESP 18–20; TEMP 36.2–36.5; O2SAT 94–98
[2025-01-19 18:31] LABS: UREA NITROGEN BLOOD 51 mg/dL (9-23)
[2025-01-19 18:32] LABS: ASPARTATE AMINOTRANSFERASE 27 IU/L (<34); BASOPHILS % 1.4 % (0.0-2.0); EOSINOPHILS % 2.4 % (0.0-5.0); HEMATOCRIT. 30.5 % (42.0-52.0); HEMOGLOBIN. 10.0 g/dL (14.0-18.0); LYMPHOCYTES % 25.1 % (20.0-50.0); MEAN PLATELET VOLUME 7.8 fl (7.4-10.4); MONOCYTES % 11.0 % (2.0-8.0); NEUTROPHILS % 60.1 % (40.0-76.0); PLATELET 446 x1000/uL (130-400); RED BLOOD CELL COUNT 3.21 mill/uL (4.7-6.1); RED CELL DISTRIBUTION WIDTH 14.7 % (11.6-14.6)
[2025-01-19 18:33] LABS: BILIRUBIN TOTAL 0.2 mg/dL (0.1-1.0); PHOSPHORUS 6.0 mg/dL (2.5-4.9); PROTEIN TOTAL 6.7 g/dL (6.0-8.3)
[2025-01-19 18:34] LABS: CREATININE 14.2 mg/dL (0.6-1.3)
[2025-01-20] VITALS (10 sets, daily range): BP systolic 111–138; BP diastolic 55–74; PULSE 18–86; RESP 16–20; TEMP 36.1–36.6696; O2SAT 96–100
[2025-01-20 06:35] LABS: UREA NITROGEN BLOOD 53.0 mg/dL (9-23)
[2025-01-20 06:37] LABS: BASOPHILS % 1.3 % (0.0-2.0); EOSINOPHILS % 3.7 % (0.0-5.0); HEMATOCRIT. 29.3 % (42.0-52.0); HEMOGLOBIN. 9.4 g/dL (14.0-18.0); LYMPHOCYTES % 29.1 % (20.0-50.0); MEAN PLATELET VOLUME 7.8 fl (7.4-10.4); MONOCYTES % 10.9 % (2.0-8.0); NEUTROPHILS % 55.0 % (40.0-76.0); PLATELET 393 x1000/uL (130-400); RED BLOOD CELL COUNT 3.07 mill/uL (4.7-6.1); RED CELL DISTRIBUTION WIDTH 14.7 % (11.6-14.6)
[2025-01-20 06:38] LABS: CREATININE 14.6 mg/dL (0.6-1.3)
[2025-01-21] VITALS: BP 121/65; PULSE 76; RESP 19; TEMP 36.4; O2SAT 97
[2025-01-21] MEDS: TRAZODONE HCL 50MG TABLET PO NR (01:20)
[2025-01-21 04:30] VITALS: BP 103/53; PULSE 72; RESP 16; TEMP 36.3; O2SAT 99
[2025-01-21 08:00] VITALS: BP 99/50; PULSE 80; RESP 20; TEMP 36.7; O2SAT 97
[2025-01-21 12:00] VITALS: BP 110/61; PULSE 68; RESP 20; TEMP 36.3; O2SAT 95
[2025-01-21 16:00] VITALS: BP 103/54; PULSE 70; RESP 14; TEMP 36.2; O2SAT 94
[2025-01-21 20:00] VITALS: BP 109/64; PULSE 68; RESP 18; TEMP 36.4; O2SAT 99
[2025-01-22] VITALS (11 sets, daily range): BP systolic 102–124; BP diastolic 53–70; PULSE 63–84; RESP 17–20; TEMP 36.2–36.6696; O2SAT 93–99
[2025-01-22 10:15] LABS: BASOPHILS % 1.6 % (0.0-2.0); EOSINOPHILS % 3.2 % (0.0-5.0); HEMATOCRIT. 27.8 % (42.0-52.0); HEMOGLOBIN. 8.9 g/dL (14.0-18.0); LYMPHOCYTES % 24.9 % (20.0-50.0); MEAN PLATELET VOLUME 7.9 fl (7.4-10.4); MONOCYTES % 8.0 % (2.0-8.0); NEUTROPHILS % 62.3 % (40.0-76.0); PLATELET 316 x1000/uL (130-400); RED BLOOD CELL COUNT 2.90 mill/uL (4.7-6.1); RED CELL DISTRIBUTION WIDTH 14.5 % (11.6-14.6)
[2025-01-22 10:28] LABS: UREA NITROGEN BLOOD 40.0 mg/dL (9-23)
[2025-01-22 11:18] LABS: CREATININE 11.4 mg/dL (0.6-1.3)
[2025-01-23] VITALS: BP 101/51; PULSE 70; RESP 18; TEMP 36.4; O2SAT 95
[2025-01-23 03:56] VITALS: BP 92/46; PULSE 72; RESP 18; TEMP 36.4; O2SAT 97
[2025-01-23 08:24] VITALS: BP 106/60; PULSE 77; RESP 18; TEMP 36.5; O2SAT 93
[2025-01-23 12:07] VITALS: BP 108/58; PULSE 67; RESP 19; TEMP 36.5; O2SAT 92
[2025-01-23 16:21] VITALS: BP 126/66; PULSE 68; RESP 19; TEMP 36.4; O2SAT 96
[2025-01-23 20:00] VITALS: BP 121/65; PULSE 71; RESP 20; TEMP 36.5; O2SAT 98
[2025-01-24] VITALS (12 sets, daily range): BP systolic 105–134; BP diastolic 56–78; PULSE 66–85; RESP 15–18; TEMP 36.4–36.9; O2SAT 96–100
[2025-01-24] MEDS: AMIODARONE 200MG TABLET PO SCH (09:46)
[2025-01-25 04:00] VITALS: BP 118/74; PULSE 75; RESP 16; TEMP 36.8; O2SAT 97
[2025-01-25 08:00] VITALS: BP 133/57; PULSE 76; RESP 20; TEMP 36.3; O2SAT 97
[2025-01-25 12:00] VITALS: BP 129/78; PULSE 69; RESP 20; TEMP 36.9; O2SAT 100
[2025-01-25 16:00] VITALS: BP 129/84; PULSE 74; RESP 20; TEMP 36.1; O2SAT 97
[2025-01-25 20:00] VITALS: BP 130/72; PULSE 72; RESP 18; TEMP 36.6; O2SAT 100
[2025-01-26] VITALS (9 sets, daily range): BP systolic 110–139; BP diastolic 56–78; PULSE 65–87; RESP 15–20; TEMP 36–37.1; O2SAT 96–100
[2025-01-26 07:44] LABS: BASOPHILS % 1.5 % (0.0-2.0); EOSINOPHILS % 2.3 % (0.0-5.0); HEMATOCRIT. 29.7 % (42.0-52.0); HEMOGLOBIN. 9.4 g/dL (14.0-18.0); LYMPHOCYTES % 24.2 % (20.0-50.0); MEAN PLATELET VOLUME 8.3 fl (7.4-10.4); MONOCYTES % 10.4 % (2.0-8.0); NEUTROPHILS % 61.6 % (40.0-76.0); PLATELET 318 x1000/uL (130-400); RED BLOOD CELL COUNT 3.03 mill/uL (4.7-6.1); RED CELL DISTRIBUTION WIDTH 15.1 % (11.6-14.6)
[2025-01-26 08:03] LABS: UREA NITROGEN BLOOD 53.0 mg/dL (9-23)
[2025-01-26 08:45] LABS: CREATININE 12.4 mg/dL (0.6-1.3)
[2025-01-26] MEDS ORDERED: CALC667C PO (17:12)
[2025-01-26] MEDS ORDERED: AMI2 PO (17:12)
[2025-01-26] MEDS ORDERED: MELA3TAB40 PO (17:12)
[2025-01-26] MEDS ORDERED: TRAZ-251 PO (17:12)
[2025-01-26] MEDS ORDERED: APIX5TAB MT (17:12)
[2025-01-26] MEDS ORDERED: TOPUD PO (17:12)
== END 2025-01-26 19:00 | DRG 314 ==
LOC: ER 18:37 → 5WST 20:42 → EDBEDREQTM 20:45 → EDBEDREQ 20:45 → ENRESERV 20:59 → EDBEDREQ 21:07 → 7EST 12-30 10:42 → CVICU 01-01 05:15 → 8WST 01-07 15:35 → 7EST 01-15 15:33 → 7WST 01-16 19:01
PROVIDERS: ADMIT Internal Medicine; ATTEND Internal Medicine
PROC: 5A1D70Z Performance of Urinary Filtration, Intermittent, Less than 6 Hours Per Day (ICD-10-PCS; 2024-12-27)
PROC: 5A1D70Z Performance of Urinary Filtration, Intermittent, Less than 6 Hours Per Day (ICD-10-PCS; 2024-12-29)
PROC: 0BH17EZ Insertion of Endotracheal Airway into Trachea, Via Natural or Artificial Opening (ICD-10-PCS; principal; 2025-01-01)
PROC: 5A1945Z Respiratory Ventilation, 24-96 Consecutive Hours (ICD-10-PCS; 2025-01-01)
PROC: 5A12012 Performance of Cardiac Output, Single, Manual (ICD-10-PCS; 2025-01-01)
PROC: 02HV33Z Insertion of Infusion Device into Superior Vena Cava, Percutaneous Approach (ICD-10-PCS; 2025-01-01)
PROC: B548ZZA Ultrasonography of Superior Vena Cava, Guidance (ICD-10-PCS; 2025-01-01)
PROC: 5A1D70Z Performance of Urinary Filtration, Intermittent, Less than 6 Hours Per Day (ICD-10-PCS; 2025-01-01)
PROC: 5A1D70Z Performance of Urinary Filtration, Intermittent, Less than 6 Hours Per Day (ICD-10-PCS; 2025-01-02)
PROC: 5A1D70Z Performance of Urinary Filtration, Intermittent, Less than 6 Hours Per Day (ICD-10-PCS; 2025-01-03)
PROC: 5A1D70Z Performance of Urinary Filtration, Intermittent, Less than 6 Hours Per Day (ICD-10-PCS; 2025-01-04)
PROC: 5A1D70Z Performance of Urinary Filtration, Intermittent, Less than 6 Hours Per Day (ICD-10-PCS; 2025-01-05)
PROC: 5A1D70Z Performance of Urinary Filtration, Intermittent, Less than 6 Hours Per Day (ICD-10-PCS; 2025-01-08)
PROC: 5A1D70Z Performance of Urinary Filtration, Intermittent, Less than 6 Hours Per Day (ICD-10-PCS; 2025-01-10)
PROC: 5A1D70Z Performance of Urinary Filtration, Intermittent, Less than 6 Hours Per Day (ICD-10-PCS; 2025-01-11)
PROC: 5A1D70Z Performance of Urinary Filtration, Intermittent, Less than 6 Hours Per Day (ICD-10-PCS; 2025-01-12)
PROC: 5A1D70Z Performance of Urinary Filtration, Intermittent, Less than 6 Hours Per Day (ICD-10-PCS; 2025-01-15)
PROC: 5A1D70Z Performance of Urinary Filtration, Intermittent, Less than 6 Hours Per Day (ICD-10-PCS; 2025-01-17)
PROC: 5A1D70Z Performance of Urinary Filtration, Intermittent, Less than 6 Hours Per Day (ICD-10-PCS; 2025-01-19)
PROC: 5A1D70Z Performance of Urinary Filtration, Intermittent, Less than 6 Hours Per Day (ICD-10-PCS; 2025-01-20)
PROC: 5A1D70Z Performance of Urinary Filtration, Intermittent, Less than 6 Hours Per Day (ICD-10-PCS; 2025-01-22)
PROC: 5A1D70Z Performance of Urinary Filtration, Intermittent, Less than 6 Hours Per Day (ICD-10-PCS; 2025-01-24)
PROC: 5A1D70Z Performance of Urinary Filtration, Intermittent, Less than 6 Hours Per Day (ICD-10-PCS; 2025-01-26)
DX: T82.838A Hemorrhage due to vascular prosthetic devices, implants and grafts, initial encounter (principal); A41.9 Sepsis, unspecified organism; I46.9 Cardiac arrest, cause unspecified; J96.01 Acute respiratory failure with hypoxia; G93.41 Metabolic encephalopathy; J69.0 Pneumonitis due to inhalation of food and vomit; N18.6 End stage renal disease; R65.21 Severe sepsis with septic shock; L76.32 Postprocedural hematoma of skin and subcutaneous tissue following other procedure; Z68.41 Body mass index [BMI] 40.0-44.9, adult; G93.1 Anoxic brain damage, not elsewhere classified; I12.0 Hypertensive chronic kidney disease with stage 5 chronic kidney disease or end stage renal disease; I82.B11 Acute embolism and thrombosis of right subclavian vein; T82.510A Breakdown (mechanical) of surgically created arteriovenous fistula, initial encounter; E11.22 Type 2 diabetes mellitus with diabetic chronic kidney disease; E87.5 Hyperkalemia; Z99.2 Dependence on renal dialysis; E78.5 Hyperlipidemia, unspecified; E66.9 Obesity, unspecified; D50.0 Iron deficiency anemia secondary to blood loss (chronic); M43.16 Spondylolisthesis, lumbar region; M48.07 Spinal stenosis, lumbosacral region; Y71.2 Prosthetic and other implants, materials and accessory cardiovascular devices associated with adverse incidents; Y84.1 Kidney dialysis as the cause of abnormal reaction of the patient, or of later complication, without mention of misadventure at the time of the procedure; Z75.1 Person awaiting admission to adequate facility elsewhere
CPT/HCPCS: 31500; 31720; 36415; 36573; 36600; 70551; 71045; 71275; 72148; 80048; 80053; 80170; 80202; 82375; 82805; 82962; 83036; 83735; 84100; 84132; 84145; 84478; 84484; 85025; 85027; 85379; 86705; 86709; 86850; 86900; 87070; 87077; 87186; 87340; 90935; 92610; 92950; 93005; 93306; 93970; 93971; 94002; 94003; 94070; 94640; 97110; 97162; 97164; 97166; 97530; 97535; 98960; 99285; A4606; A6449; C1725; J0290; J0461; J0612; J1580; J1650; J1815; J1938; J2003; J2060; J2270; J2470; J2543; J2704; J2919; J3373; J3490; J7050; Q9967

== ENCOUNTER 2025-03-19 09:59 | Inpatient (IN) | payer MEDICARE, OTHER ==
[~2025-03-19] VITALS: Ht 188 cm; Wt 120.2 kg
[~2025-03-19 09:59] MED LIST changes: +AMI2 PO; +APIX5TAB MT; +CALC667C PO; +MELA3TAB40 PO; +TOPUD PO; +TRAZ-251 PO
[2025-03-19 10:06] VITALS: O2SAT 97
[2025-03-19 11:43] LABS: BASOPHILS % 1.5 % (0.0-2.0); EOSINOPHILS % 1.5 % (0.0-5.0); HEMATOCRIT. 38.2 % (42.0-52.0); HEMOGLOBIN. 12.2 g/dL (14.0-18.0); LYMPHOCYTES % 28.4 % (20.0-50.0); MEAN PLATELET VOLUME 7.8 fl (7.4-10.4); MONOCYTES % 9.0 % (2.0-8.0); NEUTROPHILS % 59.6 % (40.0-76.0); PLATELET 331 x1000/uL (130-400); RED BLOOD CELL COUNT 4.07 mill/uL (4.7-6.1); RED CELL DISTRIBUTION WIDTH 16.0 % (11.6-14.6)
[2025-03-19 11:59] LABS: UREA NITROGEN BLOOD 43.0 mg/dL (9-23)
[2025-03-19 12:02] LABS: CREATININE 9.6 mg/dL (0.6-1.3)
[2025-03-19 12:03] LABS: TROPONIN I HIGH SENSITIVITY 317 ng/L (3.0-53)
[2025-03-19] MEDS: ASPIRIN 325MG EC TABLET PO ONE (13:39)
[2025-03-19] MEDS: MORPHINE SULFATE 4 MG/ML INJ (FOR IV/IM USE) IV ONE (13:45)
[2025-03-19] MEDS: ONDANSETRON HCL 4MG/2ML INJ IV ONE (13:45)
[2025-03-19 16:00] VITALS: BP 114/65; PULSE 66; RESP 13; TEMP 36.4; O2SAT 94
[2025-03-19 16:26] VITALS: BP 116/65; PULSE 79; RESP 18; TEMP 36.4736
[2025-03-19] MEDS ORDERED: ACETAMINOPHEN 325MG TABLET PO PRN (16:45)
[2025-03-19] MEDS ORDERED: ZOLPIDEM TARTRATE 5MG TABLET PO PRN (16:45)
[2025-03-19] MEDS ORDERED: CLONIDINE 0.1MG TABLET PO PRN (16:45)
[2025-03-19 20:00] VITALS: BP 105/67; PULSE 64; RESP 14; TEMP 36.4; O2SAT 100
[2025-03-19 22:39] LABS: TROPONIN I HIGH SENSITIVITY 348 ng/L (3.0-53)
[2025-03-19] MEDS: ACETAMINOPHEN 325MG TABLET PO PRN (23:04)
[2025-03-20] VITALS: BP 105/67; PULSE 65; RESP 16; TEMP 36.6; O2SAT 98
[2025-03-20 02:45] VITALS: BP 81/33; PULSE 64; RESP 16; TEMP 36.6; O2SAT 95
[2025-03-20] MEDS: MIDODRINE HCL 5MG TABLET PO SCH (03:26)
[2025-03-20 04:00] VITALS: BP 99/49; PULSE 63; RESP 16; TEMP 36.5; O2SAT 94
[2025-03-20 05:10] VITALS: BP 99/57; PULSE 68
[2025-03-20 05:20] VITALS: BP 88/56; PULSE 67
[2025-03-20 05:40] VITALS: BP 87/54; PULSE 63
[2025-03-20] MEDS ORDERED: MIDODRINE HCL 5MG TABLET PO SCH (14:00)
== END 2025-03-20 12:10 | disposition left against medical advice (07) | DRG 698 ==
LOC: ER 10:22 → 7WST 14:04 → EDBEDREQ 14:06 → EDBEDREQTM 14:06 → ENRESERV 14:35
PROVIDERS: ADMIT Internal Medicine; ATTEND Internal Medicine
PROC: 5A1D70Z Performance of Urinary Filtration, Intermittent, Less than 6 Hours Per Day (ICD-10-PCS; principal; 2025-03-19)
DX: T82.41XA Breakdown (mechanical) of vascular dialysis catheter, initial encounter (principal); N18.6 End stage renal disease; I13.2 Hypertensive heart and chronic kidney disease with heart failure and with stage 5 chronic kidney disease, or end stage renal disease; Z86.74 Personal history of sudden cardiac arrest; Z99.2 Dependence on renal dialysis; D63.1 Anemia in chronic kidney disease; E11.22 Type 2 diabetes mellitus with diabetic chronic kidney disease; Z53.29 Procedure and treatment not carried out because of patient's decision for other reasons; Z79.4 Long term (current) use of insulin; Y83.8 Other surgical procedures as the cause of abnormal reaction of the patient, or of later complication, without mention of misadventure at the time of the procedure; Y92.89 Other specified places as the place of occurrence of the external cause
CPT/HCPCS: 36415; 71045; 80048; 83880; 84484; 85025; 90935; 99285; A4606